=== PATIENT | female | born 1935 | race African-American/Black ===

== ENCOUNTER 2018-09-01 06:11 | Day surgery (SDC) | payer MEDICARE, OTHER ==
[2018-09-01] MEDS ORDERED: LIDOCAINE 2% (SDV) 5 ML INJ (07:00)
[2018-09-01] MEDS ORDERED: ETOMIDATE 20 MG INJ (08:01)
[2018-09-01] MEDS ORDERED: PROPOFOL 20 ML (08:01)
== END 2018-09-01 10:43 | disposition home or self-care (01) ==
LOC: GIL 06:11
DX: R19.4 Change in bowel habit (principal); K29.30 Chronic superficial gastritis without bleeding; K64.8 Other hemorrhoids; I10 Essential (primary) hypertension; E78.5 Hyperlipidemia, unspecified
CPT/HCPCS: 43239; 88305; 88312